=== PATIENT | female | born 1945 | race Caucasian/White ===

== ENCOUNTER 2022-11-26 06:36 | Day surgery (SDC) | payer MEDICARE ==
[2022-11-25 10:37] VITALS: BMI 26.9
[2022-11-26 08:09] LABS: #Eosinphils 0.1 thou/uL (0.0-0.7); #Lymphocytes 1.4 thou/uL (1.20-3.40); #Monocytes 0.9 thou/uL (0.11-0.59); #Neutrophils 6.6 thou/uL (1.40-6.50); %Basophils 0.5 % (0.0-1.0); %Eosinophils 0.8 % (0.0-10.0); %Lymphocytes 15.8 % (21.0-51.0); %Monocytes 9.7 % (0.0-10.0); %Neutrophils 73.3 % (42.0-75.0); Mean Corpuscular HGB CONC 35.1 g/dL (32.0-36.0); Mean Corpuscular Hemoglobin 31.2 pg (27.0-31.0); Mean Corpuscular Volume 88.8 fl (78.0-98.0); Mean Platelet Volume 9.4 fL (7.4-10.4); Platelet Count 168 10x3/uL (130-400); RBC Distribution Width 12.7 % (11.5-14.5); Red Blood Cell (RBC) Count 4.51 mill/uL (4.20-5.40)
[2022-11-26 08:26] LABS: Anion Gap 14 mmol/L (10-20); BUN (Urea Nitrogen) 15 mg/dL (9.8-20.1); Calc. Creatinine Clearance 69 mL/min (70-130); Calcium 9.9 mg/dL (7.8-10.44); Carbon Dioxide 23 mmol/L (23-31); Chloride 107 mmol/L (98-107); Estimated GFR 78; Glucose 140 mg/dL (83-110); Potassium 3.8 mmol/L (3.5-5.1); Sodium 140 mmol/L (136-145)
[2022-11-26] MEDS ORDERED: Bupivacaine HCl 0.5%/Epinephrine 1:200,000/PF 30 ml Vial ONE (09:12)
[2022-11-26] MEDS ORDERED: Thrombin 5000 UNITS/5 ML VIAL ONE (09:12)
[2022-11-26] MEDS ORDERED: CEFAZOLIN 2 GM VIAL ONE ×2 (09:18→12:52)
[2022-11-26] MEDS ORDERED: Sodium Chloride 0.9% 100 ML ONE ×2 (09:18→12:52)
[2022-11-26] MEDS ORDERED: fentaNYL PF 100 MCG/2 ML SYRINGE ONE (09:34)
[2022-11-26] MEDS ORDERED: Dexamethasone 20 MG/5 ML VIAL ONE (09:40)
[2022-11-26] MEDS ORDERED: Ketorolac Tromethamine 30 MG/ML VIAL ONE (09:40)
[2022-11-26] MEDS ORDERED: Ondansetron PF 4 MG/2 ML Vial ONE ×2 (09:40→11:37)
[2022-11-26] MEDS ORDERED: PROPOFOL 200 MG/20 ML VIAL ONE (09:40)
[2022-11-26] MEDS ORDERED: Lidocaine 1% PF 5 ML VIAL ONE (09:40)
[2022-11-26] MEDS ORDERED: Labetalol HCl 100 MG/20 ML VIAL ONE (09:40)
[2022-11-26] MEDS ORDERED: Rocuronium Bromide 10 MG/ML (10ML VIAL) ONE (09:40)
[2022-11-26] MEDS ORDERED: Promethazine HCl 25 MG/ML VIAL IM PRN (10:33)
[2022-11-26] MEDS ORDERED: Ondansetron HCl/PF 4 MG/2 ML Vial IVP PRN (10:33)
[2022-11-26] MEDS ORDERED: SUGAMMADEX SODIUM 200 MG/2 ML VIAL ONE (10:39)
[2022-11-26] MEDS ORDERED: fentaNYL 50 mcg/mL 1 mL Vial ONE ×2 (11:22→12:17)
[2022-11-26] MEDS ORDERED: hydrALAZINE 20 MG/ML VIAL ONE (11:55)
[2022-11-26] MEDS ORDERED: Promethazine HCl 25 MG/ML VIAL ONE (12:01)
== END 2022-11-26 15:20 | disposition home or self-care (01) ==
LOC: SDC 06:36
PROVIDERS: ATTEND Neurological Surgery
PROC: 01NB0ZZ Release Lumbar Nerve, Open Approach (ICD-10-PCS; principal; 2022-11-26)
DX: M54.16 Radiculopathy, lumbar region (principal); M48.061 Spinal stenosis, lumbar region without neurogenic claudication; M41.9 Scoliosis, unspecified; E11.9 Type 2 diabetes mellitus without complications; I11.0 Hypertensive heart disease with heart failure; I50.30 Unspecified diastolic (congestive) heart failure; E78.5 Hyperlipidemia, unspecified; E03.9 Hypothyroidism, unspecified; M81.0 Age-related osteoporosis without current pathological fracture; Z86.73 Personal history of transient ischemic attack (TIA), and cerebral infarction without residual deficits; Z79.02 Long term (current) use of antithrombotics/antiplatelets; Z79.82 Long term (current) use of aspirin; Z79.84 Long term (current) use of oral hypoglycemic drugs; Z79.899 Other long term (current) drug therapy; Z88.5 Allergy status to narcotic agent
CPT/HCPCS: 63030; 80048; 85025; 93005; J0360; J3010; 93010; C1713; J2405; J2550; J3490